=== PATIENT | male | born 1975 | race Caucasian/White ===

== ENCOUNTER 2021-11-02 00:11 | Emergency (ER) | payer BC ==
[~2021-11-02] VITALS: Ht 180.3 cm; Wt 120.2 kg
[2021-11-02 00:14] VITALS: BP 150/90
--- NOTE | 2021-11-02 00:14 | NUR ---
TO BED AMBULATORY
--- NOTE | 2021-11-02 00:30 | NUR ---
RECEIVED IN BED 5 WITH C/O LACERATION TO LEFT INDEX FINGER S/P SLICING WITH MANDOLIN AT 1300HOUR, WITH BLEEDING CONTROLLED
--- NOTE | 2021-11-02 00:35 | NUR ---
Dr. Pritchett examining patient.
[2021-11-02 01:55] VITALS: BP 150/90
--- NOTE | 2021-11-02 01:55 | NUR ---
Patient discharged with v/s stable. DSD in place to digit. surgicell was placed per ER MD Written and verbal after care instructions given and explained. Patient verbalized understanding. Ambulatory with steady gait. All questions addressed prior to discharge. Advised to follow up with PMD.
== END 2021-11-02 01:55 | disposition home or self-care (01) ==
LOC: MED 00:11
DX: S61.211A Laceration without foreign body of left index finger without damage to nail, initial encounter (principal); X58.XXXA Exposure to other specified factors, initial encounter; Y93.89 Activity, other specified; Y92.89 Other specified places as the place of occurrence of the external cause; Y99.8 Other external cause status
CPT/HCPCS: 90471; 90715; 99283